=== PATIENT | male | born 1980 | race Caucasian/White ===

== ENCOUNTER 2017-10-15 08:42 | Emergency (ER) | payer BC, OTHER ==
[2017-10-15 08:48] VITALS: BP 135/95; PULSE 77; RESP 18; TEMP 98.3
--- NOTE | 2017-10-15 09:41 | ED ---
ENT HPI - General Chief complaint: ENT Stated complaint: Pain in right ear Time Seen by Provider: 10/15/17 08:55 Source: patient, RN notes reviewed, old records reviewed Mode of arrival: ambulatory Limitations: no limitations - History of Present Illness Initial comments: Patient is a 36-year-old male presents emergency Department chief complaint of right ear pain and irritation. Patient reports that yesterday he was having some issues with his sinuses, he went to see if primary care physician. They decided to remove cerumen from his ear. He reports that they scratch the ear canal and it was continuing to bleed. They reported that he got the bleeding to stop yesterday while in the office, however today he started to notice that was rebleeding again. He reports he feels a lot of pressure within the ear itself. He reports they were not able to remove the entire cerumen impaction. Patient states that he has never had any major history of ear infections or sinus issues. He was started on eardrops and oral antibiotics, azithromycin as today. - Related Data Allergies Allergy/AdvReac Type Severity Reaction Status Date / Time No Known Allergies Allergy Verified 10/15/17 08:48 Review of Systems ROS Statement: Those systems with pertinent positive or pertinent negative responses have been documented in the HPI. ROS Other: All systems not noted in ROS Statement are negative. Past Medical History Past Medical History: No Reported History History of Any Multi-Drug Resistant Organisms: None Reported Past Surgical History: Tonsillectomy Past Psychological History: Anxiety, Depression Smoking Status: Never smoker Past Alcohol Use History: Occasional Past Drug Use History: None Reported General Exam - General Exam Comments Initial Comments: Patient 36-year-old male. Alert and oriented. No acute distress. General: Well appearing, well nourished, in no distress. Oriented x 3, normal mood and affect . Ambulating without difficulty. Skin: Good turgor, no rash, unusual bruising or prominent lesions Hair: Normal texture and distribution. HEENT: Head: Normocephalic, atraumatic, no visible or palpable masses, depressions, or scaring. Eyes: Visual acuity intact, conjunctiva clear, sclera non-icteric, EOM intact, PERRL. Ears: Right EAC has a small abrasion. Active bleeding noted. And the abrasion is significant cerumen impaction. Unable to visualize TM. Ear canals are patent. Nose: No external lesions, mucosa non-inflamed, septum and turbinates normal Mouth: Mucous membranes moist, no mucosal lesions. Teeth/Gums: No obvious caries or periodontal disease. No gingival inflammation or significant resorption. Pharynx: Mucosa non-inflamed, no tonsillar hypertrophy or exudate Neck: Supple, without lesions, bruits, or adenopathy, thyroid non-enlarged and non-tender Heart: No cardiomegaly or thrills; regular rate and rhythm, no murmur or gallop Lungs: Clear to auscultation and percussion Extremities: No amputations or deformities, cyanosis, edema or varicosities, peripheral pulses intact Musculoskeletal: Normal gait and station. No misalignment, asymmetry, crepitation, defects, tenderness, masses, effusions, decreased range of motion, instability, atrophy or abnormal strength or tone in the head, neck, spine, ribs , pelvis or extremities. Neurologic: CN 2-12 normal. Sensation to pain, touch, and proprioception normal. Limitations: no limitations Course Vital Signs 10/15/17 08:44 Temperature 98.3 F Pulse Rate 77 Respiratory 18 Rate Blood Pressure 135/95 O2 Sat by Pulse 97 Oximetry Medical Decision Making - Medical Decision Making Is a 36-year-old male presents with right ear pain and bleeding after cerumen removal. Patient had the cerumen removed with a curette yesterday by PCP. There is an abrasion at that time. His rebleeding today. At this time he has cerumen behind the abrasion. I do not feel comfortable removing as the ears or any irritated at this time. I did place a Crawford ear wick within the ear to help stop the bleeding as well as instilled antibiotic drops that he was prescribed, polymyxin B. At this time I discussed that he needs purchase the proximal drops to help loosen the cerumen. I discussed follow-up with ENT specialist once the ear canal is healed to have the cerumen impaction removed properly. Patient agrees to treatment plan will comply. Return parameters were discussed. Disposition Clinical Impression: Abrasion of right ear canal Disposition: HOME SELF-CARE Condition: Good Instructions: Ear Foreign Body (ED) Additional Instructions: Patient advised to use decongestant medication. Continue antibiotic drops and Patient should continue the oral antibiotic as prescribed. Follow-up with ENT on Tuesday. Purchase D Brox drops instill those in the ear to help loosen the wax prior to ENT follow up. Is patient prescribed a controlled substance at d/c from ED?: No When asked, does pt state using other controlled substances?: No If prescribed controlled substance>3 days was MAPS reviewed?: No If opioid is for acute pain is fill amount 7 days or less?: No If Rx opioid, was Start Talking consent form obtained?: No Referrals: Nonstaff,Physician [Primary Care Provider] - 1-2 days Otto Pardo DO [Doctor of Osteopathic Medicine] - 1-2 days Time of Disposition: 09:39
== END 2017-10-15 09:48 | disposition home or self-care (01) ==
LOC: EC 08:42
DX: S00.411A Abrasion of right ear, initial encounter (principal); X58.XXXA Exposure to other specified factors, initial encounter
CPT/HCPCS: 99283